=== PATIENT | male | born 1940 | race Caucasian/White ===

== ENCOUNTER 2021-01-18 01:24 | Emergency (ER) | payer MEDICARE ==
[2021-01-18] MEDS ORDERED: PREDNISONE 20MG20 MG PO (02:22)
== END 2021-01-18 02:35 | disposition home or self-care (01) ==
LOC: FER 01:24
DX: J40 Bronchitis, not specified as acute or chronic (principal); J45.909 Unspecified asthma, uncomplicated
CPT/HCPCS: 99284; J7512

== ENCOUNTER 2021-10-28 12:58 | Emergency (ER) | payer MEDICARE ==
[~2021-10-28 12:58] MED LIST: PREDNISONE 20MG20 MG PO
[2021-10-28 14:41] LABS: BILIRUBIN NEGATIVE (NEGATIVE); BLOOD NEGATIVE Ery/uL (NEGATIVE); CLARITY CLEAR (CLEAR); COLOR YELLOW (YELLOW); GLUCOSE (U) NORMAL (NORMAL); LEUKOCYTES NEGATIVE Leu/uL (NEGATIVE); NITRITE NEGATIVE (NEGATIVE); PROTEIN NEGATIVE (NEGATIVE); UROBILINOGEN 0.2 mg/dL (0.2-1.0); pH 5.5 (5.0-9.0)
[2021-10-28 14:47] LABS: INFLUENZA A NAA NEGATIVE (NEGATIVE)
[2021-10-28 14:52] LABS: CORONAVIRUS 2019 SARS-COV-2 POSITIVE (NEGATIVE)
[2021-10-28 14:58] LABS: BASOPHIL 0.7 % (0-2); EOSINOPHIL 3.3 % (0-7); HGB 12.5 g/dl (13.2-18.0); LYMPHOCYTE 15.7 % (15-48); MCHC 33.8 g/dL (32.0-36.0); MCV 88.9 fL (78.0-100.0); MONOCYTE 15.3 % (0-12); MPV 10.4 fL (6.0-9.5); NEUTROPHIL 64.6 % (41-80); NRBC 0; PLT 152 K/uL (150-400); RBC 4.16 M/uL (4.70-6.00); RDW 12.4 % (11.5-14.0); WBC 7.6 K/uL (4.0-10.5)
[2021-10-28 15:24] LABS: ALBUMIN 3.9 g/dL (3.4-5.0); BILIRUBIN - TOTAL 0.4 mg/dL (0.2-1.0); BUN/CREAT RATIO (CALC) 9.2 RATIO; CREATININE 1.42 mg/dL (0.67-1.17); FT4 (FREE T4) 0.8 ng/dL (0.76-1.46); GLOBULIN (CALCULATION) 3.4 g/dL; MAGNESIUM 1.9 mg/dL (1.8-2.4); POTASSIUM 4.2 mmol/L (3.5-5.1); TOTAL PROTEIN 7.3 g/dL (6.4-8.2)
[2021-10-28 15:44] LABS: INR 1.08 (0.9-1.2); PROTHROMBIN TIME 13.7 SECONDS (11.9-13.9); PTT 28.4 SECONDS (24.9-34.6)
[2021-10-28] MEDS ORDERED: PAXLOVID CO-PA1 EAC1 PO (15:46)
== END 2021-10-28 16:10 | disposition home or self-care (01) ==
LOC: FER 12:58
PROVIDERS: Emergency Medicine
DX: U07.1 COVID-19 (principal); R41.0 Disorientation, unspecified; J45.909 Unspecified asthma, uncomplicated; I10 Essential (primary) hypertension; Z87.891 Personal history of nicotine dependence; Z91.09 Other allergy status, other than to drugs and biological substances
CPT/HCPCS: 36415; 70450; 71250; 80053; 81003; 83735; 84145; 84439; 84443; 84484; 85025; 85610; 85730; 93005; U0002